=== PATIENT | male | born 1945 | race Caucasian/White ===

== ENCOUNTER 2023-03-06 12:09 | Emergency (ER) | payer MEDICARE, MEDICAID ==
[~2023-03-06] VITALS: Ht 175.3 cm; Wt 104.1 kg
[~2023-03-06 12:09] MED LIST: ASPI81TA83 OR; FELO10TA OR; FELODIPINE PO; HYDR25TA7 OR; LABE30TA PO; LASI40TA PO; LISI40TA PO
[2023-03-06 12:11] VITALS: BP 137/93; TEMP 97.7; O2SAT 97
[2023-03-06] MEDS ORDERED: HYDR-3910 (12:18)
[2023-03-06] MEDS ORDERED: XARE20TA (12:18)
[2023-03-06] MEDS ORDERED: METO50TA7 (12:18)
[2023-03-06] MEDS ORDERED: RAMI1CAP24 (12:18)
[2023-03-06 14:41] LABS: BASO # 0.1 10^3/uL (0.0-0.2); BASO % 0.8 % (0.0-1.0); EOS # 0.2 10^3/uL (0.0-0.5); EOS % 2.4 % (0.0-3.0); HEMATOCRIT 47.8 % (42.0-52.0); HEMOGLOBIN 15.3 g/dl (13.5-17.5); LYMPH # 1.4 10^3/uL (1.5-5.0); LYMPH % 20.7 % (24.0-44.0); MEAN CORPUSCULAR HEMOGLOBIN 28.5 pg (27.0-33.0); MEAN CORPUSCULAR VOLUME 89.2 fl (80.0-96.0); MONO # 0.8 10^3/uL (0.0-0.8); MONO % 11.7 % (2.0-8.0); NEUTROPHILS # 4.2 10^3/uL (1.5-8.5); NEUTROPHILS % 64.1 % (36.0-66.0); PLATELET COUNT, AUTOMATED 219 10^3/uL (150-450); RED BLOOD COUNT 5.36 10^6/uL (4.30-6.10); WHITE BLOOD COUNT 6.6 10^3/uL (4.0-10.0)
[2023-03-06 14:49] LABS: ERYTHROCYTE SEDIMENTATION RATE 2 mm/hr (0-20)
[2023-03-06] MEDS ORDERED: CEPH500C PO (15:34)
[2023-03-06] MEDS ORDERED: CEPHALEXIN 500 MG CAP PO ONE (15:35)
== END 2023-03-06 15:42 | disposition home or self-care (01) ==
LOC: M ED 12:09
DX: S60.212A Contusion of left wrist, initial encounter (principal); I10 Essential (primary) hypertension; E11.9 Type 2 diabetes mellitus without complications; G40.909 Epilepsy, unspecified, not intractable, without status epilepticus; Z86.79 Personal history of other diseases of the circulatory system; Z91.013 Allergy to seafood; Z79.2 Long term (current) use of antibiotics; Z79.899 Other long term (current) drug therapy